=== PATIENT | female | born 1955 | race Caucasian/White ===

== ENCOUNTER 2022-06-13 09:24 | Day surgery (SDC) | payer MEDICARE ==
[2022-06-13] MEDS ORDERED: Lactated Ringers 1,000 ML IV SCH (10:15)
[2022-06-13] MEDS ORDERED: Midazolam 1 MG/ML 2 ML SDV ONE (10:24)
[2022-06-13] MEDS ORDERED: fentaNYL 100 MCG/2 ML SDV ONE (10:24)
[2022-06-13] MEDS ORDERED: Propofol 200 MG/20 ML SDV ONE (10:24)
[2022-06-13 14:28] VITALS: BP 113/66; PULSE 76
== END 2022-06-13 14:25 ==
LOC: JP.SDS 09:24
PROVIDERS: ATTEND Family Medicine
DX: Z12.11 Encounter for screening for malignant neoplasm of colon (principal); D12.0 Benign neoplasm of cecum; D12.3 Benign neoplasm of transverse colon; D12.8 Benign neoplasm of rectum; Z88.8 Allergy status to other drugs, medicaments and biological substances
CPT/HCPCS: 45381; 45385; 88305; J2250; J2704; J3010; J7120; 45380